=== PATIENT | female | born 1970 | race Caucasian/White ===

== ENCOUNTER → 2017-11-22 11:35 | Outpatient (POV) | payer MEDICAID, SELFPAY | PROVIDERS: Visit Provider Internal Medicine | DX: Z00.00 Encounter for general adult medical examination without abnormal findings (principal) ==

== ENCOUNTER → 2018-02-20 09:07 | Outpatient (CLI) | payer OTHER, SELFPAY ==
--- NOTE | 2018-02-20 09:35 | CA_ITS ---
PROCEDURE: 2-D M-mode and color Doppler study INDICATIONS FOR THE TEST: Chest pain + COPD+ Heart Murmur Tobacco Smoking Palpitations Fatigue Syncope Edema Hypertension Diabetes Mellitus Rheumatic Fever SOB+BONILLA Obesity Hyperlipidemia Family History HD Additional History HOME 02 PATIENT INFORMATION HEIGHT: 70 WEIGHT:260 GENDER: Female B/P:120/80 2-D/M-MODE INTERPRETATION: 2-D MEASUREMENTS OBSERVED VALUES IN CMS Right Ventricular Dimension (RVDd) 2.7 Interventricular Septum (Thickness)(IVsd) 1.7 Left Ventricular Internal Dimensions(LVIDd) 3.3 Left Ventricular Posterior Wall (Thickness)(LVPWd) 1.5 Aortic Root 3.3 Aortic Cusp Separation 2.1 Left Atrial Dimensions (LAD) 3.7 2D 1. Technically difficult study 2. Left atrium is mildly enlarged, left ventricle is normal size, there is mild concentric left ventricular hypertrophy, visually estimated ejection fraction 55%, there is abnormal septal motion. 3. The right atrium and right ventricle are normal size and contractility. 4. The aortic valve is minimally thickened and fibrosed. 5. The pulmonic valve is poorly visualized. 6. No significant pericardial effusion noted. 7. The mitral and tricuspid valvular grossly normal. DOPPLER INTERROGATION: Doppler interrogation of the aortic, mitral and tricuspid valvular presence of mild mitral and tricuspid regurgitation, tricuspid regurgitation jet velocity is inadequate for calculation of the right ventricular systolic pressure, diastolic parameters are within normal range. CONCLUSION: 1. Technically difficult study 2. Mildly enlarged left atrium, normal left ventricular size, mild concentric left ventricular hypertrophy, visually estimated ejection fraction 55% with no regional wall motion abnormality, diastolic parameters are within normal range. 3. Mild mitral and tricuspid regurgitation 4. No significant pericardial effusion noted.
--- NOTE | 2018-02-20 10:12 | CT_ITS ---
CT chest wo con HISTORY: Follow-up pulmonary nodules ITS.REASON: PULMONARY NODULES ORDERING PHYSICIAN: Jovan Andrew MD PATIENT AGE: 47 years COMPARISON: 05/27/2014 Technique: Axial images obtained with sagittal and coronal reformats. All CT scans at the facility use one or more dose reduction, viz: automated exposure control, ma/kV adjustment per patient size (including targeted exams where dose is matched to indication, i.e. head), or iterative reconstruction technique. FINDINGS: There is a small lymph node in the anterior mediastinum measuring 17 x 7 x 5 mm previously 15 x 9 x 6 mm. A precarinal node is also present measuring 2.7 x 1.3 cm previously 2.7 x 1.1 cm. There is hyperinflation with attenuation of the peripheral pulmonary vessels and coarsening of the bronchovascular markings consistent with obstructive chronic bronchitis. The interstitial markings have somewhat increased compared to the previous exam. A nodular density is present in the right cardio phrenic angle and 14 mm consistent with a lymph node previously measuring 8 mm. There is a parenchymal opacity in the left upper lobe laterally which is stable at approximately 6 mm. Peripheral parenchymal opacity noted in the left upper lobe inferiorly just somewhat increased but felt to be related to fibrotic change/scarring there is a 5 mm noncalcified nodule in the left upper lobe laterally and posteriorly unchanged. A 4 mm noncalcified nodule present in the superior segment of the left lower lobe image #40 not readily apparent on the previous exam No central obstructing lesions. There is a 8 mm nodular opacity within the lingula inferiorly probably due to an area of fibrosis. A new 4 mm nodule present in the left upper lobe laterally image #21 Upper abdominal images show scattered small lymph nodes. There is a right cardiophrenic angle node at 14 mm and several small lymph nodes anterior to the heart measuring up to 12 mm. These have increased in size. Mildly prominent lymph nodes are present medial to the GE junction measuring up to 1.8 cm. A 2.3 cm node is present posterior to the body of the pancreas. There is a 3 mm nonobstructing right renal stone and a 2.7 cm isodensity projects in the posterior aspect of the right kidney. No acute bony anomalies. IMPRESSION: 1. Obstructive chronic bronchitis with interstitial fibrotic changes. The interstitial markings have slightly increased compared to the previous exam. There are scattered areas of parenchymal fibrosis. 2. Scattered small pulmonary nodules. These are nonspecific some of which are new and some which are unchanged. Consider 6 month follow-up to confirm short-term stability. 3. There is adenopathy in the upper abdomen and pericardial region. Suggest dedicated CT abdomen pelvis with IV and oral contrast for further evaluation. Scattered nodes are present in the mediastinum as well but do not appear significantly changed
[2018-02-20 11:15] VITALS: PULSE 78; PULSE 82
[2018-02-20 13:25] LABS: Alanine Aminotransferase 36 U/L (12-78); Albumin Level 3.6 gm/dL (3.4-5.0); Albumin/Globulin Ratio 1.1 (1.1-1.8); Alkaline Phosphatase 82 U/L (46-116); Anion Gap 6.4 mEq/L (5-15); Aspartate Amino Transferase 28 U/L (15-37); Bilirubin,Total 0.3 mg/dL (0.2-1.0); Blood Urea Nitrogen 9 mg/dL (7-18); Calcium 8.9 mg/dL (8.5-10.1); Carbon Dioxide 36 mmol/L (21.0-32.0); Chloride 104 mmol/L (98-107); Creatinine,Serum 0.75 mg/dL (0.55-1.02); Estimated Glomerular Filt Rate 82 ml/min (>60); GFR (African American) 99 ML/MIN (>60); Globulin 3.2 gm/dl (1.3-3.2); Glucose 98 mg/dL (74-106); Potassium 4.4 mmoL/L (3.5-5.1); Sodium 142 mmol/L (136-145); Total Protein,Serum 6.8 gm/dL (6.4-8.2)
== END ==
PROVIDERS: Nurse Practitioner Family; Family Provider Emergency Medicine; PCP Family Medicine; Visit Provider Internal Medicine
DX: J44.0 Chronic obstructive pulmonary disease with (acute) lower respiratory infection (principal); R91.8 Other nonspecific abnormal finding of lung field; R06.02 Shortness of breath; J44.9 Chronic obstructive pulmonary disease, unspecified
CPT/HCPCS: 36415; 71250; 80053; 93306; 94060; 94640; 94726; 94729

== ENCOUNTER → 2018-02-27 16:59 | Outpatient (CLI) | payer OTHER, SELFPAY ==
[2018-02-27 18:01] LABS: Basophils % 0.3 % (0.1-2.0); Eosinophils % 0.7 % (0.1-12.0); Hematocrit 46.3 % (37.0-47.0); Hemoglobin 14.6 g/dL (12.2-16.2); Lymphocytes # 0.7 K/mm3 (0.7-4.5); Lymphocytes % 11.7 K/mm3 (10-50); Mean Corpuscular HGB Conc 31.6 g/dL (31.8-35.4); Mean Corpuscular Hemoglobin 30.1 pg (27.0-31.2); Mean Corpuscular Volume 95.3 fl (81-99); Mean Platelet Volume 7.1 fl (7.4-10.4); Monocytes # 0.3 K/mm3 (0.1-1.0); Monocytes % 4.2 % (1.7-9.3); Neutrophils # 4.9 K/mm3 (1.8-7.8); Neutrophils % 83.1 % (37.0-80.0); Platelet Count 236 K/mm3 (142-424); Red Blood Count 4.85 M/mm3 (4.20-5.40); Red Cell Distribution Width 14.1 % (11.5-17.5); White Blood Count 5.9 K/mm3 (4.8-10.8)
== END ==
PROVIDERS: PCP Family Medicine; Visit Provider Nurse Practitioner Family
DX: R06.02 Shortness of breath (principal); J44.0 Chronic obstructive pulmonary disease with (acute) lower respiratory infection
CPT/HCPCS: 36415; 85025

== ENCOUNTER → 2018-05-09 14:20 | Outpatient (POV) | payer OTHER, SELFPAY | PROVIDERS: Visit Provider Internal Medicine | DX: Z00.00 Encounter for general adult medical examination without abnormal findings (principal) ==

== ENCOUNTER → 2018-08-11 13:35 | Outpatient (CLI) | payer OTHER, SELFPAY ==
--- NOTE | 2018-08-11 13:38 | CT_ITS ---
CT chest wo con HISTORY: Follow-up pulmonary nodules ITS.REASON: MULTIPLE PULMONARY NODULES ORDERING PHYSICIAN: Jovan Andrew MD PATIENT AGE: 48 years COMPARISON: 02/20/2018 Technique: Axial images obtained following the administration of 75 mL of Optiray 350 . Sagittal, and coronal reformatted images are also generated and reviewed. All CT scans at the facility use one or more dose reduction, viz: automated exposure control, ma/kV adjustment per patient size (including targeted exams where dose is matched to indication, i.e. head), or iterative reconstruction technique. FINDINGS: There are scattered small mediastinal nodes once again noted. The largest node is in the precarinal region at 2.7 x 1.3 cm x 2.9 cm. This node may be slightly more bulky compared to the previous exam. Robinson evaluation is somewhat limited without IV contrast. Most of the nodes are not significantly changed. Some nodes contain calcification. A small pericardial lymph node is present on the right at 2 x 1.2 cm previously 1.8 x 1.2 cm. There is diffuse interstitial fibrosis. A new 7 mm nodule present in the left apex medially. Previously noted 4 mm nodule in the left upper lobe laterally is less apparent. There is a 4 mm nodule in left upper lobe anterolaterally image #38 unchanged. There are scattered atelectatic or fibrotic changes. 6 mm nodule left upper lobe laterally image 41 and changed. There is a new area of parenchymal opacity in the lingula consistent with an area of atelectasis. No acute bony findings. Upper abdominal images show adenopathy in the retroperitoneum with the largest node measuring 2.7 x 1.8 cm previously 2.3 x 1.5 cm. There is also some irregular contour of the liver suggesting cirrhosis. Nonobstructing bilateral renal calculi are also noted. IMPRESSION: 1. Mediastinal and upper abdominal adenopathy which has increased since the previous exam. Lymphoma or metastatic disease is considered. Suggest CT of the abdomen and pelvis with IV and oral contrast for further evaluation. 2. Pulmonary fibrosis with scattered pulmonary nodules some of which are unchanged. A new 7 mm nodule present in the left apex medially
== END ==
PROVIDERS: PCP Internal Medicine; Visit Provider Internal Medicine
DX: R91.8 Other nonspecific abnormal finding of lung field (principal)
CPT/HCPCS: 71250

== ENCOUNTER → 2018-10-24 13:17 | Outpatient (POV) | payer OTHER, SELFPAY | PROVIDERS: Visit Provider Internal Medicine | DX: Z00.00 Encounter for general adult medical examination without abnormal findings (principal) ==

== ENCOUNTER → 2020-05-30 15:00 | Outpatient (CLI) | payer MEDICAID, SELFPAY ==
--- NOTE | 2020-05-30 15:14 | CT_ITS ---
PROCEDURE: CT CHEST WO CON CLINICAL INDICATION: Lung nodule followup lung nodule no symptoms at this time prior 08/11/18 COMPARISON: CT CHESTWO CT chest wo con from 08/11/2018 TECHNIQUE: Axial images obtained with sagittal and coronal reformats. All CT scans at the facility use one or more dose reduction, viz: automated exposure control, ma/kV adjustment per patient size (including targeted exams where dose is matched to indication, i.e. head), or iterative reconstruction technique. FINDINGS: HEART AND MEDIASTINAL STRUCTURES: There are scattered small mediastinal lymph nodes once again noted. These are somewhat smaller compared to the previous exam. Pre cardial lymph nodes are present as before and appears somewhat smaller. LUNGS AND PLEURAL SPACES: There has been interval improvement in the previously described interstitial lung disease. There is a mosaic ground-glass attenuation mainly in the upper lobes. There is some mild bronchial thickening. A small parenchymal opacities left upper lobe image 16 at 6 mm unchanged. Subpleural opacities in the left upper lobe are unchanged. There is some scarring within the lingula.. 4 mm subpleural opacity left upper lobe laterally image 36 unchanged. There is a new area of parenchymal opacity in the left lung base posteriorly which may be due to small area of infiltrate or atelectasis. No effusions. BONY STRUCTURES: Degenerative changes in the spine UPPER ABDOMEN: Cirrhotic appearing liver. There are some mildly prominent lymph nodes in the upper abdomen which are smaller compared to the previous exam there are nonobstructing bilateral renal calculi. There is a 2.9 x 1.4 cm right renal cyst ADDITIONAL FINDINGS: No other significant abnormalities. IMPRESSION: 1. Interval improvement in the diffuse prominence of the interstitium. 2. No change in the small pulmonary nodules. There is a new parenchymal opacity in the left lower lobe posteriorly may be due to an area of pneumonia or atelectasis. 3. There is a faint mosaic ground-glass attenuation in the upper lobes nonspecific and may be seen with edema, infection, obstructive small airway disease and other less common entities. 4. Persistent but improved appearance of the adenopathy in the chest and upper abdomen. 5. Cirrhotic appearance of the liver. 6. Bilateral nephrolithiasis Dictated by: Merrick Russell MD 05/31/2020 07:07 Merrick Russell MD in [place] 05/31/2020 07:07
[2020-05-30 15:48] LABS: Basophils % 0.5 % (0.1-2.0); Eosinophils # 0.1 K/mm3 (0.0-0.4); Eosinophils % 1.1 % (0.1-12.0); Hematocrit 43.1 % (37.0-47.0); Hemoglobin 13.4 g/dL (12.2-16.2); Lymphocytes # 1.3 K/mm3 (0.7-4.5); Lymphocytes % 16.9 % (10-50); Mean Corpuscular HGB Conc 31.1 g/dL (31.8-35.4); Mean Platelet Volume 8.4 fl (7.4-10.4); Monocytes # 0.4 K/mm3 (0.1-1.0); Monocytes % 4.8 % (1.7-9.3); Neutrophils # 5.8 K/mm3 (1.8-7.8); Neutrophils % 76.8 % (37.0-80.0); Platelet Count 160 K/mm3 (142-424); Red Blood Count 4.63 M/mm3 (4.20-5.40); Red Cell Distribution Width 14.9 % (11.5-17.5); White Blood Count 7.5 K/mm3 (4.8-10.8)
[2020-05-30 16:02] LABS: Chloride 94 mmol/L (98-107); Potassium 4.7 mmoL/L (3.5-5.1); Sodium 140 mmol/L (136-145)
[2020-05-30 16:05] LABS: Blood Urea Nitrogen 18 mg/dl (7-17); Estimated Glomerular Filt Rate 76 ml/min (>60); GFR (African American) 92 ML/MIN (>60)
[2020-05-30 16:06] LABS: Calcium 9.6 mg/dl (8.4-10.2); Glucose 110 mg/dl (74-100)
[2020-05-30 16:24] LABS: Anion Gap 11.7 mEq/L (5-15); Carbon Dioxide 39 mmol/L (22.0-30.0)
[2020-06-01 09:35] LABS: Alpha-1-Antitrypsin 112 mg/dL (101-187)
[2020-06-03 11:22] LABS: Calcium, Ionized 5.3 mg/dL (4.5-5.6)
[2020-06-04 01:07] LABS: D001-IgE D pteronyssinus <0.10 kU/L (Class 0); D002-IgE D farinae <0.10 kU/L (Class 0); E001-IgE Cat Dander <0.10 kU/L (Class 0); E005-IgE Dog Dander <0.10 kU/L (Class 0); G002-IgE Bermuda Grass <0.10 kU/L (Class 0); G006-IgE Timothy Grass <0.10 kU/L (Class 0); I006-IgE Cockroach, German <0.10 kU/L (Class 0); Immunoglobulin E, Total 5 IU/mL (6-495); M001-IgE Penicillium chrysogen <0.10 kU/L (Class 0); M002-IgE Cladosporium herbarum <0.10 kU/L (Class 0); M003-IgE Aspergillus fumigatus <0.10 kU/L (Class 0); M006-IgE Alternaria alternata <0.10 kU/L (Class 0); T001-IgE Maple/Box Elder <0.10 kU/L (Class 0); T006-IgE Cedar, Mountain <0.10 kU/L (Class 0); T007-IgE Oak, White <0.10 kU/L (Class 0); T008-IgE Elm, American <0.10 kU/L (Class 0); T010-IgE Walnut <0.10 kU/L (Class 0); T011-IgE Maple Leaf Sycamore <0.10 kU/L (Class 0); T014-IgE Cottonwood <0.10 kU/L (Class 0); T015-IgE Ash, White <0.10 kU/L (Class 0); T022-IgE Pecan, Hickory <0.10 kU/L (Class 0); T070-IgE White Mulberry <0.10 kU/L (Class 0); W001-IgE Ragweed, Short <0.10 kU/L (Class 0); W011-IgE Thistle, Russian <0.10 kU/L (Class 0); W014-IgE Pigweed, Common <0.10 kU/L (Class 0); W016-IgE Rough Marshelder <0.10 kU/L (Class 0)
[2020-06-04 08:35] LABS: E072-IgE Mouse Urine <0.10 kU/L (Class 0)
== END ==
PROVIDERS: Visit Provider Internal Medicine Pulmonary Disease
DX: R91.8 Other nonspecific abnormal finding of lung field (principal); D86.2 Sarcoidosis of lung with sarcoidosis of lymph nodes; J44.9 Chronic obstructive pulmonary disease, unspecified; J45.909 Unspecified asthma, uncomplicated
CPT/HCPCS: 36415; 71250; 80048; 82103; 82330; 82785; 85025; 86003

== ENCOUNTER → 2020-08-27 12:52 | Outpatient (CLI) | payer MEDICAID, SELFPAY ==
[2020-08-27 14:00] VITALS: PULSE 71; PULSE 78
== END ==
PROVIDERS: PCP Internal Medicine; Visit Provider Internal Medicine Pulmonary Disease
DX: R06.02 Shortness of breath (principal)
CPT/HCPCS: 94060; 94640; 94727; 94729

== ENCOUNTER → 2021-07-01 15:03 | Outpatient (CLI) | payer MEDICAID, SELFPAY ==
--- NOTE | 2021-07-01 15:03 | CT_ITS ---
FINAL REPORT TECHNIQUE: Axial images were obtained from the lung apex to the mid abdomen by computed tomography. Coronal reformatted images were obtained. This study was performed with techniques to keep radiation doses as low as reasonably achievable, (ALARA). Individualized dose reduction techniques using automated exposure control or adjustment of mA and/or kV according to the patient''s size were employed. CLINICAL HISTORY: sarcoidosis, copd COMPARISON: May 30, 2020 FINDINGS: There is no axillary adenopathy. There is mild mediastinal adenopathy, stable from prior. An AP window lymph node measures 26 mm and previously measured 24 mm. Heart size is normal. There is no pericardial or pleural effusion. Images through the upper abdomen demonstrate prior cholecystectomy. There is a probable right renal cyst. There are mild patchy pulmonary ground-glass opacities that could represent edema or alveolitis, worse from prior. IMPRESSION: Mild patchy pulmonary ground-glass opacities, edema or alveolitis, worse from prior. Reviewed, Interpreted and Dictated by Klaus Sidhu III, MD Transcribed by Zack Toure Authenticated by Klaus Sidhu III, MD on 07/01/2021 04:50:34 PM [facility]
== END ==
PROVIDERS: PCP Internal Medicine; Visit Provider Internal Medicine Pulmonary Disease
DX: R91.8 Other nonspecific abnormal finding of lung field (principal)
CPT/HCPCS: 71250

== ENCOUNTER → 2021-11-24 13:01 | Outpatient (CLI) | payer MEDICAID, SELFPAY ==
[2021-11-24 14:20] VITALS: PULSE 82; PULSE 84
== END ==
PROVIDERS: PCP Internal Medicine; Visit Provider Internal Medicine Pulmonary Disease
DX: R06.09 Other forms of dyspnea (principal)
CPT/HCPCS: 94060; 94640; 94727; 94729

== ENCOUNTER → 2021-11-24 16:06 | Outpatient (CLI) | payer MEDICAID, SELFPAY ==
[2021-11-24 16:45] LABS: Basophils % 0.8 % (0.1-2.0); Eosinophils # 0.1 K/mm3 (0.0-0.4); Eosinophils % 1.8 % (0.1-12.0); Hematocrit 43.3 % (37.0-47.0); Hemoglobin 13.5 g/dL (12.2-16.2); Lymphocytes # 1.3 K/mm3 (0.7-4.5); Lymphocytes % 26.4 % (10-50); Mean Corpuscular HGB Conc 31.1 g/dL (31.8-35.4); Mean Corpuscular Hemoglobin 29.6 pg (27.0-31.2); Mean Corpuscular Volume 95.1 fl (81-99); Mean Platelet Volume 7.7 fl (7.4-10.4); Monocytes # 0.4 K/mm3 (0.1-1.0); Monocytes % 7.3 % (1.7-9.3); Neutrophils % 63.7 % (37.0-80.0); Platelet Count 160 K/mm3 (142-424); Red Blood Count 4.55 M/mm3 (4.20-5.40); Red Cell Distribution Width 13.7 % (11.5-17.5); White Blood Count 4.8 K/mm3 (4.8-10.8)
[2021-11-24 17:11] LABS: Alanine Aminotransferase 19 U/L (12-78); Albumin Level 3.9 g/dl (3.5-5.0); Albumin/Globulin Ratio 1.3 (1.1-1.8); Alkaline Phosphatase 73 U/L (38-126); Aspartate Amino Transferase 34 U/L (14-36); Blood Urea Nitrogen 14 mg/dl (7-17); Calcium 9.5 mg/dl (8.4-10.2); Chloride 92 mmol/L (98-107); Estimated Glomerular Filt Rate 88 ml/min (>60); GFR (African American) 106 ML/MIN (>60); Globulin 2.9 g/dL (1.3-3.2); Glucose 129 mg/dl (74-100); Potassium 4.8 mmoL/L (3.5-5.1); Sodium 143 mmol/L (136-145); Total Protein,Serum 6.8 g/dl (6.3-8.2)
[2021-11-24 17:19] LABS: C-Reactive Protein 1.4 mg/L (0-4)
[2021-11-24 17:20] LABS: Anion Gap 6.8 mEq/L (5-15); Bilirubin,Total < 0.1 mg/dl (0.2-1.3); Carbon Dioxide 49 mmol/L (22.0-30.0)
== END ==
PROVIDERS: PCP Internal Medicine; Visit Provider Internal Medicine Pulmonary Disease
DX: R06.09 Other forms of dyspnea (principal); J45.909 Unspecified asthma, uncomplicated; I50.30 Unspecified diastolic (congestive) heart failure
CPT/HCPCS: 36415; 80053; 85025; 86140

== ENCOUNTER → 2021-12-16 08:37 | Outpatient (CLI) | payer MEDICAID, SELFPAY ==
--- NOTE | 2021-12-16 08:39 | CA_ITS ---
APPROVED REPORT EXAM: Comprehensive 2D, Doppler, and color-flow Echocardiogram [employer] Service Technician: Fartun May RVT Ht: 5 ft 10 in Wt: 270lbs BSA: 2.37 BP: 113/69 mmHg Indications: DIASYTOLIC HEART FAILURE,SAMMY,PULMONARY SARCOIDOSIS,COPD,SOA,OBESITY,EX SMOKER 2D Dimensions LVOT 2.06 cm (M/F) 1.5-2.5 LA Volume 38.30 mL LA Volume Index 16.16 mL/m2 (M/F) 16-34 M-Mode Dimensions RVDd 2.97 cm (0.9-2.6) LA Diam 3.66 cm (1.9-4.0) LVDd 5.06 cm (3.5-5.7) Ao Diam 3.26 cm (2.0-3.7) LVDs 3.02 cm (3.5-5.7) IVSd 0.60 cm (0.6-1.1) PWd 0.81 cm (0.6-1.1) EF (Teich) 70.70% FS 40.30% EDV (Teich) 121.60 mL TAPSE 2.20 (<1.7) ESV (Teich) 35.60 mL LV Diastology E Decel Time 153.00 (160-240 msec) E/A Ratio 1.0 MED E' 8.20 (< 7 cm/sec) E'/MED E' Ratio 10.89 (>14) LAT E' 12.60 (<10 cm/sec) E/LAT E' Ratio 7.09 (>14) Aortic Valve AO Peak GR. 6.40 mmHg Mitral Valve MV E Max González. 89.00 (40-130 cm/s) MV A Velocity 90.00 (40-130 cm/s) E/A Ratio 0.99 MV Decel. Time 153.00 (160-240 ms) MV PHT 45.00 ms Pulmonary Valve PV Peak Velocity 102.00 (50-150 cm/s) Left Ventricle Left atrium is mildly enlarged, left ventricle is normal size mild concentric left ventricular hypertrophy, estimated ejection fraction 55% with no regional wall motion abnormality, grade 1 diastolic dysfunction seen without tissue Doppler evidence of reduced left atrial pressure. Right Ventricle Right atrium and right ventricle are mildly enlarged with normal contractility. Aortic Valve Aortic valve is minimally thickened and fibrosed, there is no aortic stenosis or aortic insufficiency. Mitral Valve Mitral valve is grossly normal, there is trace mitral regurgitation. Tricuspid Valve Tricuspid valve grossly normal, there is trace tricuspid regurgitation, tricuspid regurgitation jet velocity is inadequate for calculation of the right ventricular systolic pressure. Pulmonic Valve Pulmonic valve is poorly visualized. Great Vessels Aortic root is normal size. Inferior vena cava is normal size with normal inspiratory collapse. Pericardium No significant pericardial effusion noted. Conclusion 1. Mild biatrial enlargement, normal left ventricular size, mild concentric left ventricular hypertrophy, estimated ejection fraction 55% with no regional wall motion abnormality, grade 1 diastolic dysfunction seen without tissue Doppler evidence of raise left atrial pressure. 2. Mildly enlarged right ventricle with normal contractility. 3. Trace mitral and tricuspid regurgitation. 4. No significant pericardial effusion. 5. Inferior vena cava is normal size with normal inspiratory collapse. Electronically signed by : Jose Daniel Blair MD 12/17/2021 06:34:28
--- NOTE | 2021-12-16 09:05 | CT_ITS ---
FINAL REPORT TECHNIQUE: Axial CT images were performed through the chest without contrast. Supine inspiration and expiration High-resolution images were obtained. Prone images were not obtained previous patient was unable to tolerate additional imaging. Coronal reformatted images were submitted. This study was performed with techniques to keep radiation doses as low as reasonably achievable (ALARA). Individualized dose reduction techniques using automated exposure control or adjustment of mA and/or kV according to the patient's size were employed. CLINICAL HISTORY: . soa This is a CT HR Chest X3 COMPARISON: May 21, 2020 and July 01, 2021 FINDINGS: There is no axillary adenopathy. There is no hilar adenopathy. An AP window lymph node measures 26 mm and is stable. Other enlarged mediastinal nodes are stable. The heart size is normal. There is no pericardial or pleural effusion. Limited images of the upper abdomen demonstrate a nodular hepatic contour of uncertain significance but could represent cirrhosis. There is a 3 mm nonobstructing left renal stone. There are postoperative changes from cholecystectomy. There is a posterior right renal mass measuring 28 mm and is stable. This cannot be accurately characterized without contrast but could represent a cyst. On the lung window images, bilateral patchy ground-glass opacities are again seen which are stable. There is a 4 mm lateral left upper lobe nodular opacity which is stable. There is a 2 mm nodule posterior to this which is also probably stable. There worsening lingular opacities with nodular components which is most likely inflammatory. There are mild but worsening opacities in the posterior lung bases favoring atelectasis over scarring. IMPRESSION: Stable mild mediastinal adenopathy. Stable patchy ground-glass opacities, alveolitis versus edema. Worsening lingular opacities most likely inflammatory. Worsening posterior lower lobe opacities favoring atelectasis or scarring. Findings worrisome for cirrhosis. Right renal mass. Consider renal mass protocol CT. Reviewed, Interpreted and Dictated by Klaus Sidhu III, MD Transcribed by Pavithra Thompson Authenticated and [facility]
--- NOTE | 2021-12-16 10:00 | HMH.ITSTN ---
Patient only able to do 2 of the [address] HR chestX3. Due to anxiety and clausterphobia patient unable to do prone scan
== END ==
PROVIDERS: PCP Internal Medicine; Visit Provider Internal Medicine Pulmonary Disease
DX: R06.02 Shortness of breath (principal); J84.9 Interstitial pulmonary disease, unspecified; D86.2 Sarcoidosis of lung with sarcoidosis of lymph nodes; J44.9 Chronic obstructive pulmonary disease, unspecified
CPT/HCPCS: 71250; 93306